=== PATIENT | male | born 1940 | race Two or more races ===

== ENCOUNTER 2019-05-08 10:38 | Inpatient (IN) | payer OTHER ==
[~2019-05-08] VITALS: Ht 167.6 cm; Wt 69.4 kg
[2019-05-25] MEDS ORDERED: ASA81 MG PO (11:57)
[2019-05-25] MEDS ORDERED: PLAVIX75 MG PO (11:58)
[2019-05-25] MEDS ORDERED: LIPITOR20 MG PO (11:58)
[2019-05-25] MEDS ORDERED: SYNTHROID75 MCG PO (11:58)
[2019-05-25] MEDS ORDERED: PRILOSEC OTC20 MG PO (11:58)
[2019-05-25] MEDS ORDERED: COZAAR25 MG PO (11:59)
[2019-05-25] MEDS ORDERED: NITROTAB0.4 MG SL (12:00)
[2019-05-25] MEDS ORDERED: CARVEDILOL3.125 MG PO (12:01)
[2019-06-08] MEDS ORDERED: OXYC1TAB9 PO (15:54)
[2019-06-08] MEDS ORDERED: HYOSCYAMINE0.125 M1 SL (15:55)
== END 2019-06-08 17:06 | disposition home or self-care (01) | DRG 330 ==
LOC: SURH 05-25 08:15 → O/R 06-04 06:00 → SURH 06-04 07:00
PROVIDERS: ADMIT Surgery
PROC: 07TD4ZZ Resection of Aortic Lymphatic, Percutaneous Endoscopic Approach (ICD-10-PCS; 2019-06-04)
PROC: 4A12X4Z Monitoring of Cardiac Electrical Activity, External Approach (ICD-10-PCS; 2019-06-04)
PROC: 0DTF4ZZ Resection of Right Large Intestine, Percutaneous Endoscopic Approach (ICD-10-PCS; principal; 2019-06-04 07:00)
DX: C18.2 Malignant neoplasm of ascending colon (principal); I25.810 Atherosclerosis of coronary artery bypass graft(s) without angina pectoris; E03.8 Other specified hypothyroidism; R59.0 Localized enlarged lymph nodes; K63.89 Other specified diseases of intestine; I25.5 Ischemic cardiomyopathy; E11.9 Type 2 diabetes mellitus without complications; I11.9 Hypertensive heart disease without heart failure; Z79.4 Long term (current) use of insulin; Z85.46 Personal history of malignant neoplasm of prostate; Z08 Encounter for follow-up examination after completed treatment for malignant neoplasm

== ENCOUNTER 2020-10-04 06:00 | Day surgery (SDC) | payer OTHER ==
[~2020-10-04 06:00] MED LIST: ASA81 MG PO; CARVEDILOL3.125 MG PO; COZAAR25 MG PO; HYOSCYAMINE0.125 M1 SL; LIPITOR20 MG PO; NITROTAB0.4 MG SL; OXYC1TAB9 PO; PLAVIX75 MG PO; PRILOSEC OTC20 MG PO; SYNTHROID75 MCG PO
== END 2020-10-04 10:30 | disposition home or self-care (01) ==
LOC: AMB-ENDOS 06:00
PROVIDERS: ATTEND Surgery
DX: K63.5 Polyp of colon (principal); Z20.828 Contact with and (suspected) exposure to other viral communicable diseases